=== PATIENT | female | born 1990 | race Caucasian/White ===

== ENCOUNTER 2018-06-12 09:24 | Emergency (ER) | payer MEDICAID, OTHER ==
[2018-06-12 09:28] VITALS: O2SAT 99; BMI 39.4
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
[2018-06-12 11:14] VITALS: BP 99/64; PULSE 77; RESP 18; TEMP 98.5
== END 2018-06-12 11:31 | disposition home or self-care (01) ==
LOC: C.ER 09:24
DX: T14.8XXA Other injury of unspecified body region, initial encounter (principal); V47.5XXA Car driver injured in collision with fixed or stationary object in traffic accident, initial encounter